=== PATIENT | male | born 2000 | race Caucasian/White ===

== ENCOUNTER → 2020-01-21 | Outpatient (REF) | payer BC ==
[2020-01-21 13:59] LABS: INFLUENZA A AMPLIFICATION NEGATIVE (NEGATIVE); INFLUENZA B AMPLIFICATION NEGATIVE (NEGATIVE)
== END ==
LOC: M LAB REF 12:12
PROVIDERS: ATTEND Physician Assistant
DX: J11.1 Influenza due to unidentified influenza virus with other respiratory manifestations (principal)

== ENCOUNTER 2020-06-03 20:05 | Inpatient (IN) | payer BC ==
[2020-06-05] MEDS ORDERED: PARoxetine 20 MG TAB As Ordered ONE (12:49)
[2020-06-05] MEDS ORDERED: PARoxetine 10MG TABLET As Ordered ONE (12:49)
[2020-06-05] MEDS ORDERED: NICOTINE POLACRILEX 2 MG GUM As Ordered ONE ×2 (12:50→18:13)
[2020-06-05] MEDS ORDERED: traZODone 50 MG TAB As Ordered ONE (21:05)
== END 2020-06-06 11:25 | disposition home or self-care (01) | DRG 754 ==
LOC: M ED 20:05 → M PSY 20:55
PROVIDERS: ADMIT Psychiatry & Neurology Addiction Medicine; ATTEND Psychiatry & Neurology Addiction Medicine
DX: F32.9 Major depressive disorder, single episode, unspecified (principal); R45.851 Suicidal ideations; F63.9 Impulse disorder, unspecified; F60.3 Borderline personality disorder; F12.90 Cannabis use, unspecified, uncomplicated

== ENCOUNTER → 2021-05-15 | Outpatient (CLI) | payer BC ==
[2021-05-15 15:50] LABS: BASO # 0.1 10^3/uL (0.0-0.2); EOS % 0.6 % (0.0-3.0); HEMATOCRIT 49.9 % (42.0-52.0); HEMOGLOBIN 16.9 g/dl (13.5-17.5); LYMPH # 1.7 10^3/uL (1.5-5.0); LYMPH % 23.7 % (24.0-44.0); MEAN CORPUSCULAR HEMOGLOBIN 31.2 pg (27.0-33.0); MEAN CORPUSCULAR HGB CONC 33.9 g/dl (32.0-36.5); MEAN CORPUSCULAR VOLUME 92.2 fl (80.0-96.0); MONO # 0.5 10^3/uL (0.0-0.8); MONO % 6.6 % (2.0-8.0); NEUTROPHILS # 4.8 10^3/uL (1.5-8.5); NEUTROPHILS % 67.7 % (36.0-66.0); PLATELET COUNT, AUTOMATED 227 10^3/uL (150-450); RED BLOOD COUNT 5.41 10^6/uL (4.30-6.10); WHITE BLOOD COUNT 7.1 10^3/uL (4.0-10.0)
[2021-05-15 16:20] LABS: ALBUMIN 4.4 GM/DL (3.2-5.2); ALT/SGPT 19 U/L (12-78); BILIRUBIN,TOTAL 0.7 MG/DL (0.2-1.0); BLOOD UREA NITROGEN 9 MG/DL (7-18); CALCIUM LEVEL 9.8 MG/DL (8.5-10.1); CARBON DIOXIDE LEVEL 26 MEQ/L (21-32); CHLORIDE LEVEL 107 MEQ/L (98-107); CREATININE FOR GFR 0.98 MG/DL (0.70-1.30); GLOMERULAR FILTRATION RATE > 60.0 (>60); GLUCOSE, FASTING 86 MG/DL (70-100); POTASSIUM SERUM 4.1 MEQ/L (3.5-5.1); SODIUM LEVEL 140 MEQ/L (136-145); TOTAL PROTEIN 7.4 GM/DL (6.4-8.2)
[2021-05-15 16:22] LABS: TOTAL 25(OH) VITAMIN D 33.1 NG/ML (30.0-100.0)
== END ==
LOC: M WUC 13:16
PROVIDERS: ATTEND Family Medicine
DX: F43.23 Adjustment disorder with mixed anxiety and depressed mood (principal); E55.9 Vitamin D deficiency, unspecified

== ENCOUNTER 2021-05-18 13:35 | Emergency (ER) | payer BC ==
[~2021-05-18] VITALS: Ht 177.8 cm; Wt 61.8 kg
[2021-05-18] MEDS ORDERED: CIPR500T39 PO (15:48)
--- NOTE | 2021-05-18 16:30 | REP ---
INDICATION: L groin and testiclualr pain. COMPARISON: None. TECHNIQUE: Ultrasonography of the left inguinal region. FINDINGS: Mobile adipose tissue is seen in the left inguinal region. This is not universally abnormal. There is no bowel containing inguinal hernia. IMPRESSION: No bowel containing inguinal hernia. <Electronically signed by Vinnie Pratt > 05/18/21 [id number]
--- NOTE | 2021-05-18 16:35 | REP ---
INDICATION: L groin and testiclualr pain. COMPARISON: None. TECHNIQUE: Bilateral testicular ultrasound with Doppler FINDINGS: The right testicle measures 4.7 x 2.5 x 3.4 cm and the left testicle measures 4.2 x 2.3 x 2.9 cm. There is a single calcification in the right testicle. The testicular parenchymal echo pattern and vascular pattern is otherwise unremarkable bilaterally. The right testicular RI is 0.51 on the left is 0.58. There are 2 incidental right-sided spermatoceles. These are tiny measuring less than 2 mm There is no evidence of a significant hydrocele. There is no evidence of a varicocele. IMPRESSION: Unremarkable exam. Incidental findings as described above. <Electronically signed by Vinnie Pratt > 05/18/21 [id number]
[2021-05-18] MEDS ORDERED: HYDR50TA70 PO (17:45)
[2021-05-18 18:28] VITALS: BP 121/75
[2021-05-18 19:06] LABS: GC DNA AMPLIFICATION NEGATIVE (NEGATIVE)
== END 2021-05-18 18:30 | disposition home or self-care (01) ==
LOC: M ED 13:35
DX: F41.8 Other specified anxiety disorders (principal); N50.812 Left testicular pain; F32.9 Major depressive disorder, single episode, unspecified; F17.200 Nicotine dependence, unspecified, uncomplicated; F12.10 Cannabis abuse, uncomplicated; Z88.5 Allergy status to narcotic agent

== ENCOUNTER → 2021-05-19 | Outpatient (CLI) | payer BC ==
[~2021-05-19] MED LIST: CIPR500T39 PO; HYDR50TA70 PO
[2021-05-20 07:20] LABS: H PYLORI QUALITATIVE IgG NEGATIVE (NEGATIVE)
== END ==
LOC: M WUC 14:15
PROVIDERS: ATTEND Family Medicine
DX: R14.0 Abdominal distension (gaseous) (principal)

== ENCOUNTER → 2021-05-25 | Outpatient (CLI) | payer BC ==
--- NOTE | 2021-05-25 14:37 | REP ---
INDICATION: PAIN IN LOWER BACK INTO LEFT LEG. COMPARISON: None. TECHNIQUE: Five views lumbosacral spine. FINDINGS: There is no compression fracture or malalignment. There is normal lumbar lordosis. Disc spaces are well preserved. Posterior elements are intact. IMPRESSION: Negative lumbosacral spine series. <Electronically signed by Alexander Brown > 05/25/21 [id number]
== END ==
LOC: M RAD 14:00
PROVIDERS: ATTEND Physician Assistant
DX: M54.16 Radiculopathy, lumbar region (principal)

== ENCOUNTER → 2021-05-25 | Outpatient (REF) | payer BC ==
[2021-05-25 18:01] LABS: APPEARANCE, URINE CLEAR (CLEAR); BACTERIA, URINE AUTO NEGATIVE (NEGATIVE); BILIRUBIN, URINE AUTO NEGATIVE (NEGATIVE); BLOOD, URINE BLOOD NEGATIVE (NEGATIVE); COLOR, URINE STRAW (YELLOW); GLUCOSE, URINE (UA) AUTO NEGATIVE (NEGATIVE); KETONE, URINE AUTO NEGATIVE (NEGATIVE); LEUKOCYTE ESTERASE, URINE AUTO NEGATIVE (NEGATIVE); MUCUS, URINE SMALL (NEGATIVE); NITRITE, URINE AUTO NEGATIVE (NEGATIVE); PROTEIN, URINE AUTO NEGATIVE (NEGATIVE); RBC, URINE AUTO 0 /HPF (0-3); SPECIFIC GRAVITY URINE AUTO 1.004 (1.002-1.035); SQUAMOUS EPITHELIAL CELL UR AU 0 /HPF (0-6); UROBILINOGEN, URINE AUTO 0.2 mg/dL (0.0-2.0); WBC, URINE AUTO 0 /HPF (0-3)
== END ==
LOC: M LAB REF 17:04
PROVIDERS: ATTEND Physician Assistant
DX: R10.9 Unspecified abdominal pain (principal); M54.9 Dorsalgia, unspecified

== ENCOUNTER → 2022-05-17 | Outpatient (CLI) | payer BC | LOC: M RAD 11:46 | PROVIDERS: ATTEND Nurse Practitioner Family | DX: M79.672 Pain in left foot (principal) ==

== ENCOUNTER 2022-09-27 22:54 | Emergency (ER) | payer BC ==
[~2022-09-27] VITALS: Ht 177.8 cm; Wt 63.6 kg
[2022-09-28 04:18] VITALS: BP 142/95
== END 2022-09-28 02:26 | disposition left against medical advice (07) ==
LOC: M ED 22:54
DX: Z53.21 Procedure and treatment not carried out due to patient leaving prior to being seen by health care provider (principal)

== ENCOUNTER → 2022-10-01 | Outpatient (CLI) | payer BC | LOC: M RAD 11:03 | PROVIDERS: ATTEND Physician Assistant Medical | DX: R06.02 Shortness of breath (principal); R07.89 Other chest pain ==

== ENCOUNTER → 2022-10-18 | Outpatient (CLI) | payer BC ==
[2022-10-18 12:43] LABS: HEMATOCRIT 48.6 % (42.0-52.0); HEMOGLOBIN 16.2 g/dl (13.5-17.5); MEAN CORPUSCULAR HEMOGLOBIN 31.1 pg (27.0-33.0); MEAN CORPUSCULAR HGB CONC 33.3 g/dl (32.0-36.5); MEAN CORPUSCULAR VOLUME 93.3 fl (80.0-96.0); PLATELET COUNT, AUTOMATED 245 10^3/uL (150-450); RED BLOOD COUNT 5.21 10^6/uL (4.30-6.10)
[2022-10-23 16:08] LABS: ANCA-ATYPICAL <1:20 titer (Neg:<1:20); ANTI-SACCHAROMYCES CEREV. IgA 21.4 Units (0.0-24.9); ANTI-SACCHAROMYCES CEREV. IgG 37.6 Units (0.0-24.9); CYTOPLASMIC NEUTROP AB ANCA-C <1:20 titer (Neg:<1:20); PERINUCLEAR AB ANCA-P <1:20 titer (Neg:<1:20)
== END ==
LOC: M WUC 09:48
PROVIDERS: ATTEND Physician Assistant Medical
DX: R19.7 Diarrhea, unspecified (principal); K59.00 Constipation, unspecified; K62.5 Hemorrhage of anus and rectum; R12 Heartburn; R10.9 Unspecified abdominal pain

== ENCOUNTER 2023-12-04 15:33 | Emergency (ER) | payer BC ==
[~2023-12-04] VITALS: Ht 177.8 cm; Wt 70.5 kg
[2023-12-04 16:20] LABS: BASO # 0.1 10^3/uL (0.0-0.2); BASO % 0.6 % (0.0-1.0); EOS % 0.1 % (0.0-3.0); HEMATOCRIT 42.7 % (42.0-52.0); HEMOGLOBIN 14.9 g/dl (13.5-17.5); LYMPH # 0.8 10^3/uL (1.5-5.0); LYMPH % 6.9 % (24.0-44.0); MEAN CORPUSCULAR HEMOGLOBIN 31.2 pg (27.0-33.0); MEAN CORPUSCULAR HGB CONC 34.9 g/dl (32.0-36.5); MEAN CORPUSCULAR VOLUME 89.3 fl (80.0-96.0); MONO # 0.5 10^3/uL (0.0-0.8); MONO % 4.4 % (2.0-8.0); NEUTROPHILS # 9.7 10^3/uL (1.5-8.5); NEUTROPHILS % 87.5 % (36.0-66.0); PLATELET COUNT, AUTOMATED 172 10^3/uL (150-450); RED BLOOD COUNT 4.78 10^6/uL (4.30-6.10); WHITE BLOOD COUNT 11.1 10^3/uL (4.0-10.0)
[2023-12-04 16:44] LABS: LIPASE 29 U/L (12-53)
[2023-12-04 16:46] LABS: ALBUMIN 3.9 G/DL (3.2-5.2); ALKALINE PHOSPHATASE 63 U/L (46-116); ALT/SGPT 16 U/L (7.0-40); AST/SGOT 18 U/L (<34); BILIRUBIN,DIRECT 0.4 MG/DL (<0.4); BILIRUBIN,TOTAL 1.1 MG/DL (0.3-1.2); BLOOD UREA NITROGEN 7 MG/DL (9-23); CALCIUM LEVEL 8.7 MG/DL (8.5-10.1); CARBON DIOXIDE LEVEL 21 MMOL/L (20-31); CHLORIDE LEVEL 113 MMOL/L (98-107); GLOMERULAR FILTRATION RATE > 60.0 (>60); GLUCOSE, FASTING 91 MG/DL (60-100); SODIUM LEVEL 143 MMOL/L (136-145); TOTAL PROTEIN 6.4 G/DL (5.7-8.2)
[2023-12-04] MEDS ORDERED: HALOPERIDOL 5MG/ML 1ML VIAL IV ONE (16:50)
[2023-12-04 16:51] LABS: RSV AMPLIFICATION NEGATIVE (NEGATIVE)
[2023-12-04 17:05] VITALS: BP 144/74; TEMP 97.3; O2SAT 100
== END 2023-12-04 17:51 | disposition home or self-care (01) ==
LOC: M ED 15:33 → EDBD 15:33 → M ED 17:51
DX: R11.2 Nausea with vomiting, unspecified (principal); R19.7 Diarrhea, unspecified; F17.290 Nicotine dependence, other tobacco product, uncomplicated; Z88.5 Allergy status to narcotic agent
CPT/HCPCS: 80048; 80076; 83690; 85025; 87631; 96374; 99284; J1630